=== PATIENT | male | born 1965 | race Caucasian/White ===

== ENCOUNTER 2019-10-04 08:46 | Emergency (ER) | payer OTHER, SELFPAY ==
--- NOTE | 2019-10-04 08:53 | ED.ALLEREA ---
HPI - Allergic Reaction General Stated complaint: alllergic reaction Source: patient and RN notes reviewed Mode of arrival: ambulatory Limitations: no limitations Related Data Allergies Allergy/AdvReac Type Severity Reaction Status Date / Time No Known Allergies Allergy Unverified 10/08/18 16:31 Review of Systems Review of Systems: All systems reviewed & are unremarkable except as noted in HPI and below PMFSH Comments At time of signature, agree with nursing past medical, surgical, social and family history. There is no relevant family history pertinent to the presenting complaint Course Course Emergency Course: Patient is aware of diagnosis, understands and agrees to treatment plan. Anticipatory guidance given. Patient agrees to follow-up as directed and is aware of reasons to seek care at the emergency department. Portions of this record may have been created with voice recognition software Vital Signs Vital signs: Reviewed. Critical Care Time Critical Care Time Critical Care Time: No
--- NOTE | 2019-10-04 09:00 | ED.URI ---
HPI - URI/Sore Throat General Chief Complaint: Upper Respiratory Infection Stated Complaint: alllergic reaction Time Seen by Provider: 10/04/19 08:59 Source: patient and RN notes reviewed Mode of arrival: ambulatory Limitations: no limitations History of Present Illness HPI Narrative: 54-year-old male presents with concern for 3-day history of nasal congestion, watery eyes, itchy eyes, intermittent rhinorrhea. Reports he has been taking Benadryl with some relief. Denies fever, cough, shortness of breath, body aches, chills, sore throat, ear pain, headache, nausea, vomiting, diarrhea. MD elicited complaint: nasal congestion Related Data Home Medications Medication Instructions Recorded Confirmed hydrochlorothiazide 10/04/19 losartan 10/04/19 simvastatin mg 10/04/19 Allergies Allergy/AdvReac Type Severity Reaction Status Date / Time No Known Allergies Allergy Unverified 10/08/18 16:31 Review of Systems Review of Systems: Narrative: CONSTITUTIONAL: Denies malaise, chills, sweats, or fever. EYES: Denies visual changes. Reports bilateral red, itchy, watery eyes ENT: Reports rhinorrhea, congestion. Denies sinus pain, otalgia and sore throat. CARDIOVASCULAR: Denies chest pain, palpitations, or edema. RESPIRATORY: Denies cough or dyspnea. GASTROINTESTINAL: Denies abdominal pain, nausea, vomiting, diarrhea SKIN: Denies rash or itching. MUSCULOSKELETAL: Denies myalgia. NEUROLOGIC: Denies headache. All systems reviewed & are unremarkable except as noted in HPI and below PMFSH Comments At time of signature, agree with nursing past medical, surgical, social and family history. There is no relevant family history pertinent to the presenting complaint Exam Narrative: Exam Narrative: GENERAL: Well-appearing, well-nourished, and in no acute distress. HEAD: Normocephalic EYES: PERRLA, conjunctivae clear, sclera injected bilaterally ENT: Nares clear, turbinates edematous and erythematous, clear discharge. Mucous membranes moist. TM pearly dockery with dull light reflex bilaterally; no tragal tenderness. Oropharynx not erythematous without lesions. Tonsils not enlarged and without exudate, no drooling, no hoarseness, no trismus, uvula midline. NECK: Supple. No lymphadenopathy CHEST: Clear to auscultation, breath sounds equal. No wheezing, rhonchi, rales, or stridor. No respiratory distress, speaks in full sentences. HEART: Regular rate and rhythm. No murmur heard. SKIN: Warm, dry, no rash. NEURO: Alert and oriented x3. PSYCH: Normal mood and affect Course Course Emergency Course: Patient is aware of diagnosis, understands and agrees to treatment plan. Anticipatory guidance given. Patient agrees to follow-up as directed and is aware of reasons to seek care at the emergency department. Portions of this record may have been created with voice recognition software Vital Signs Vital signs: Vital Signs Temperature 98.7 F 10/04/19 09:02 Pulse Rate 71 10/04/19 09:02 Respiratory Rate 16 10/04/19 09:02 Blood Pressure 156/89 H 10/04/19 09:02 Pulse Oximetry 98 10/04/19 09:02 Temperature 98.7 F 10/04/19 09:02 Pulse Rate 71 10/04/19 09:02 Respiratory Rate 16 10/04/19 09:02 Blood Pressure 156/89 H 10/04/19 09:02 Pulse Oximetry 98 10/04/19 09:02 Reviewed. Patient has history of hypertension MDM - URI/Sore Throat MDM Narrative Medical decision making narrative: Differential diagnosis considered: Strep pharyngitis, allergic rhinitis, upper respiratory tract infection, sinusitis, rhinosinusitis, nasopharyngitis. viral pharyngitis, otitis media, otitis externa, pneumonia, bronchitis, viral cough syndrome, viral syndrome, and influenza. Exam findings show no acute concerns or changes; patient is non-toxic appearing and is in no distress. Patient is appropriate for outpatient treatment and follow-up. Critical Care Time Critical Care Time Critical Care Time: No Discharge Plan Discharge Clinical Impressi
[2019-10-04 09:02] VITALS: BP 156/89; PULSE 71; RESP 16; TEMP 37.1; O2SAT 98
== END 2019-10-04 09:22 | disposition home or self-care (01) ==
PROVIDERS: Emergency Provider Nurse Practitioner; PCP Physician Assistant
DX: J30.9 Allergic rhinitis, unspecified (principal); E78.00 Pure hypercholesterolemia, unspecified; I10 Essential (primary) hypertension
CPT/HCPCS: 99213; G0463

== ENCOUNTER 2020-08-21 10:48 | Emergency (ER) | payer OTHER, SELFPAY ==
[2020-08-21 11:02] VITALS: BP 156/87; PULSE 78; RESP 18; TEMP 36.6; O2SAT 97
--- NOTE | 2020-08-21 11:22 | ED.EYEPROB ---
HPI - Eye Problem General Chief complaint: Eye Problems Stated complaint: eye problems Source: patient Mode of arrival: ambulatory Limitations: no limitations History of Present Illness HPI Narrative: Patient is a 54-year-old male who presents complaining of right eye pain x5 to 7 days. He reports increased swelling. Denies visual changes. Denies fever or systemic symptoms. He denies taking [id number] medications for pain at this time. Patient denies significant medical history. MD chief complaint: other Related Data Home Medications Medication Instructions Recorded Confirmed hydrochlorothiazide 12.5 mg DAILY 10/04/19 08/21/20 losartan 100 mg DAILY 10/04/19 08/21/20 simvastatin 20 mg DAILY 10/04/19 08/21/20 Allergies Allergy/AdvReac Type Severity Reaction Status Date / Time No Known Allergies Allergy Verified 08/21/20 10:51 Review of Systems Review of Systems: Narrative: CONSTITUTIONAL: Denies fever, chills, or sweats. EYES: Denies visual changes, right eye pain ENT: Denies rhinorrhea, congestion, sore throat, or otalgia. CARDIOVASCULAR: Denies chest pain, palpitations, or edema. RESPIRATORY: Denies cough or dyspnea. GASTROINTESTINAL: Denies abdominal pain, nausea, vomiting, or diarrhea. GENITOURINARY: Denies dysuria or hematuria. SKIN: Denies rash or itching. MUSCULOSKELETAL: Denies back pain, joint pain, or myalgia. NEUROLOGIC: Denies headache, numbness, dizziness, or weakness. PSYCHIATRIC: Denies anxiety or depression. PMFSH Past Medical History Medical History Elevated cholesterol HTN (hypertension) Social History Social History (Updated 08/21/20 @ 11:30 by CAITLIN Durand) Smoking status: Never smoker Alcohol intake: never Substance use: never Living arrangements: with family Occupation/Education: occupation Gender identity (if verbalized by the patient): Male Comments At the time of signature, I have reviewed and agree with nursing past medical, surgical, social, and family history unless otherwise noted. Please see nursing chart for further information. There is no relevant family history pertinent to the presenting complaint. Exam Narrative: Exam Narrative: GENERAL: Well-appearing, well-nourished, and in no acute distress. HEAD: Normocephalic, atraumatic. EYES: EOMI. No redness or drainage. Conjunctiva are normal. No erythema and edema to right upper lid. ENT: Mucous membranes pink and moist. CHEST: No respiratory distress. HEART: Regular rate and rhythm. MUSCULOSKELETAL: No bony tenderness. EXTREMITIES: Normal range of motion. No edema. SKIN: Warm, dry, no rash. NEURO: No focal deficits. Alert and oriented x3. Gait steady. PSYCH: Normal affect. No signs of depression or anxiety. Course Vital Signs Vital signs: Vital Signs Temperature 36.6 C 08/21/20 11:02 Pulse Rate 78 08/21/20 11:02 Respiratory Rate 18 08/21/20 11:02 Blood Pressure 156/87 H 08/21/20 11:02 Pulse Oximetry 97 08/21/20 11:02 Temperature 36.6 C 08/21/20 11:02 Pulse Rate 78 08/21/20 11:02 Respiratory Rate 18 08/21/20 11:02 Blood Pressure 156/87 H 08/21/20 11:02 Pulse Oximetry 97 08/21/20 11:02 Reviewed. Patient has been instructed to follow-up with his PCP regarding his blood pressure. MDM - Eye Problem MDM Narrative Medical decision making narrative: Patient appears of hordeolum to right upper lid. Discussed use of warm compresses and symptomatic treatment. Patient started on antibiotics at this time due to the length of illness. Patient is aware of need to follow-up with PCP or ophthalmology if symptoms persist. Patient is stable for discharge to home with outpatient follow-up as discussed. Differential Diagnosis Differential diagnosis: Likely corneal abrasion, conjunctivitis, periorbital cellulitis, corneal ulcer and other (hordeolum) Critical Care Time Critical Care Time Critical Care Ti
== END 2020-08-21 11:23 | disposition home or self-care (01) ==
PROVIDERS: Emergency Provider Nurse Practitioner; PCP Physician Assistant
DX: H00.011 Hordeolum externum right upper eyelid (principal); I10 Essential (primary) hypertension; E78.00 Pure hypercholesterolemia, unspecified
CPT/HCPCS: 99213; G0463

== ENCOUNTER 2020-10-05 16:29 | Emergency (ER) | payer OTHER, SELFPAY ==
[2020-10-05 16:53] VITALS: BP 152/98; PULSE 69; RESP 16; TEMP 36.8; O2SAT 99
--- NOTE | 2020-10-05 17:14 | ED.EYEPROB ---
HPI - Eye Problem General Chief complaint: Eye Problems Stated complaint: Lt eye irritation Source: patient and RN notes reviewed Mode of arrival: ambulatory History of Present Illness HPI Narrative: This is a 55-year-old male that presented to urgent care with swollen reddened upper eyelid. Patient notes that he previously came here because he had the same reaction to the opposite eye. Patient has not done anything at home to resolve it he notes that in the morning his eye appears to be more swollen and reddened. He denies any visual disturbance or any discharge from the affected eye. The patient denies SOB, CP, palpitation, extremity numbness, lightheadedness, dizziness, constipation, diarrhea, chills, or fever. He also denies any injury or foreign object to that affected MD chief complaint: eye pain and eye redness Related Data Home Medications Medication Instructions Recorded Confirmed hydrochlorothiazide 12.5 mg DAILY 10/04/19 10/05/20 losartan 100 mg DAILY 10/04/19 10/05/20 simvastatin 20 mg DAILY 10/04/19 10/05/20 Allergies Allergy/AdvReac Type Severity Reaction Status Date / Time No Known Allergies Allergy Verified 10/05/20 16:44 Review of Systems Review of Systems: Narrative: A 14 organ system Review of Systems was performed and pertinent positives included in the HPI, otherwise remaining ROS is negative. All systems reviewed & are unremarkable except as noted in HPI and below PMFSH Past Medical History Medical History Elevated cholesterol HTN (hypertension) Social History Social History (Updated 08/21/20 @ 11:30 by CAITLIN Durand) Smoking status: Never smoker Alcohol intake: never Substance use: never Gender identity (if verbalized by the patient): Male Exam Narrative: Exam Narrative: GENERAL: This is a well-nourished, well-developed patient, in no apparent distress. HEAD: normocephalic, atraumatic. EYES: Left upper lid with edema , erythematous and tenderness vision is grossly intact. EARS: External ears normal, auditory canals clear and without drainage, TMs normal without perforation. Hearing grossly intact. NOSE: External nose normal with no obvious nasal discharge, nares without redness, no rhinorrhea. THROAT: Mucous membranes moist, posterior pharynx clear. NECK: Neck supple, non-tender without lymphadenopathy, masses or thyromegaly. CARDIOVASCULAR: Regular rate and rhythm without murmurs, gallops, or rubs. RESPIRATORY: Clear to auscultation. Breath sounds equal bilaterally. No wheezes, rales, or rhonchi. GASTROINTESTINAL: Abdomen soft, non-tender, nondistended. Bowel sounds are active. No hepato-splenomegaly, or palpable masses. No guarding. SKIN: warm, intact with no suspicious lesions or rash, good texture and turgor. NEURO: awake, alert, and oriented to person, place and time. There were no obvious focal neurologic abnormalities. Steady gait EXTREMITIES: Normal range of motion. No edema. No calf tenderness. Negative Homans sign bilaterally. BACK: Nontender without deformity or crepitance. No flank tenderness. Course Course Emergency Course: Patient was given erythromycin ointment for the eye and instructed to apply warm pack Vital Signs Vital signs: Vital Signs Temperature 98.2 F 10/05/20 16:53 Pulse Rate 69 10/05/20 16:53 Respiratory Rate 16 10/05/20 16:53 Blood Pressure 152/98 H 10/05/20 16:53 Pulse Oximetry 99 10/05/20 16:53 Temperature 98.2 F 10/05/20 16:53 Pulse Rate 69 10/05/20 16:53 Respiratory Rate 16 10/05/20 16:53 Blood Pressure 152/98 H 10/05/20 16:53 Pulse Oximetry 99 10/05/20 16:53 MDM - Eye Problem Differential Diagnosis Differential diagnosis: Likely corneal abrasion, conjunctivitis and other (hordeolum) Discharge Plan Discharge Clinical Impression: Hordeolum externum (stye) Qualifiers: Laterality: left Eyelid: upper Qualified Code(s): H00.014 - Hordeol
== END 2020-10-05 17:27 | disposition home or self-care (01) ==
PROVIDERS: Emergency Provider Nurse Practitioner; PCP Physician Assistant
DX: H00.014 Hordeolum externum left upper eyelid (principal); E78.00 Pure hypercholesterolemia, unspecified; I10 Essential (primary) hypertension
CPT/HCPCS: 99213; G0463